=== PATIENT | male | born 1990 | race Caucasian/White ===

== ENCOUNTER 2016-10-09 11:16 | Emergency (ER) | payer OTHER ==
--- NOTE | 2016-10-09 12:36 | EDDOCDS ---
Nurse's Notes [facility] Name: Gerald Conrad Age: 26 yrs Sex: Male : 1990 Arrival Date: 10/09/2016 Time: 11:16 Bed Triage 1 Private MD: Verena Cardenas Diagnosis: Unspecified chronic bronchitis Presentation: 10/09 11:22 Presenting complaint: Patient states: Coughing and "fever". No thermometer at home. ck1 Whole body is "sore". Adult Sepsis Screening: The patient does not have new or worsening altered mentation. Patient's respiratory rate is less than 22. Systolic blood pressure is greater than 100. Patient has a qSOFA score of 0- Negative Sepsis Screen. Suicide/Homicide risk assessment- the patient denies having any suicidal and/or homicidal ideations and does not present with any other emotional, behavioral or mental health complaints. Status: Patient is not a real estate services coordinator or dependent. Transition of care: patient was not received from another setting of care. 11:22 Acuity: VONNIE Level 5 ck1 11:22 Method Of Arrival: Walkin/Carried/Asstd ck1 Triage Assessment: 11:24 General: Appears in no apparent distress, comfortable, unkempt, Behavior is appropriate ck1 for age, cooperative. Pain: Location: generalized Pain currently is 7 out of 10 on a pain scale. HIV screening NA for this visit Offered previously. Neurological: Level of Consciousness is awake, alert, obeys commands, Oriented to person, place, time. Respiratory: Respiratory effort is unlabored, Respiratory pattern is regular, symmetrical, Reports cough that is. GI: No deficits noted. Derm: Skin is intact, Skin is pink, warm & dry. Musculoskeletal: Circulation, motion, and sensation intact Range of motion intact in all extremities. Historical: - Allergies: No known drug Allergies; - Home Meds: 1. Cymbalta 60 mg Oral cpDR once daily 2. Nexium 40 mg Oral cpDR 1 cap once daily - PMHx: Depression; GERD; - PSHx: none; - Social history: Smoking status: Patient uses tobacco products, heavy tobacco smoker. No barriers to communication noted, The patient speaks fluent Estonian, Speaks appropriately for age. - Family history: Not pertinent. - : The pt / caregiver states he / she is not on anticoagulants. Home medication list is obtained from the patient. - Exposure Risk Screening:: None identified. Screenin:33 Screening information is obtained from the patient. Fall risk: No risks identified. cj Assistance ADL's: requires no assistance with activities of daily living. Abuse/DV Screen: The patient / caregiver reports he/she is: not in a situation that causes fear, pain or injury. Nutritional screening: No deficits noted. Advance Directives: There is no active DNR order. home support is adequate. Assessment: 12:33 General: Appears in no apparent distress, comfortable, Behavior is appropriate for age, cj cooperative, first contact with patient to review discharge instructions with patient, patient denies needs, declines offer of further assistance. Vital Signs: 11:19 BP 142 / 78; Pulse 74; Resp 18; Temp 98.4; Pulse Ox 100% ; Weight 88.45 kg; Height 5 elp ft. 9 in. (175.26 cm); Pain 7/10; 11:19 Body Mass Index 28.80 (88.45 kg, 175.26 cm) [facility] Vitals: 11:19 Log In Time: October 09, 2016 at 11:17. [facility] ED Course: 11:19 Patient visited by Lori Fairbanks PCA. elp 11:19 Verena Cardenas is Private Physician. elp 11:19 Patient moved to Waiting elp 11:21 Patient visited by Lori Fairbanks PCA. elp 11:21 Patient moved to Pre RCE elp 11:24 Triage Initiated ck1 12:00 Patient moved to Triage 1 mlb1 12:15 Patient visited by Julio Rodas RN. mlb1 12:18 [facility] cc[facility] 12:18 Nicho Sweeney MD is Attending Physician. cc10 12:18 Patient visited by Ben Perez PA-C. cc10 12:18 Patient visited by Ben Perez PA-C. cc10 12:27 Verena Cardenas is Referral Physician. cc10 12:33 The patient / caregiver is instructed regarding the plan of care and ED course. cj 12:33 No IV's were initiated during this patient's visit. No procedures done that require [facility] assistance. Order Results: There are currently no results for this order. Outcome: 12:27 Discharge ordered by Provider. cc10 12:33 Discharge Assessment: Patient awake, alert and oriented x 3. No cognitive and/or [facility] functional deficits noted. Patient verbalized understanding of disposition instructions. patient administered narcotics - no. The following High Risk Discharge criteria are identified: None. Discharged to home ambulatory. Condition: good Condition: stable Condition: improved. Discharge instructions given to patient, Instructed on discharge instructions, follow up and referral plans. medication usage, Demonstrated understanding of instructions, medications, Pt was receptive of discharge instructions/ teaching. Prescriptions given X 3. No special radiology studies were completed. Property :Personal belongings accompany Pt. 12:35 Patient left the ED. [facility] Signatures: Julio Rodas RN RN mlb1 Christina Belcher,RN RN ck1 Diana FaustRN RN [facility] Lori Fairbanks, TELEPHONE INSTALLER TELEPHONE INSTALLER janap Ben Perez, PA-C PA-C cc10 MTDD
--- NOTE | 2016-10-09 12:36 | EDDOCDS ---
Physician Documentation [facility] Name: Gerald Conrad Age: 26 yrs Sex: Male : 1990 Arrival Date: 10/09/2016 Time: 11:16 Bed Triage 1 Private MD: Verena Cardenas Disposition: 10/09/16 12:27 Discharged to Home/Self Care. Impression: Unspecified chronic bronchitis. - Condition is Stable. - Discharge Instructions: Chronic Bronchitis, How to Use an Inhaler. - Prescriptions for Prednisone 20 mg Oral Tablet - take 1 tablet by ORAL route once daily for 5 days; 5 tablet. Guaifenesin- DM 10-100 mg/5 mL Oral Liquid - take 10 milliliter by ORAL route every 6 hours As needed; 200 milliliter. Albuterol Sulfate 90 mcg/actuation Inhalation HFA Aerosol Inhaler - inhale 2 puff by INHALATION route every 4 hours As needed; 1 Inhaler. - Medication Reconciliation, Local Pharmacy Hours form. - Follow up: Emergency Department; When: As needed. Follow up: Verena Cardenas; When: Call to arrange an appointment; Reason: Wound/Symptom Recheck, Recheck today's complaints, Worsening of conditions, Continuance of care. - Problem is an ongoing problem. - Symptoms are unchanged. Historical: - Allergies: No known drug Allergies; - Home Meds: 1. Cymbalta 60 mg Oral cpDR once daily 2. Nexium 40 mg Oral cpDR 1 cap once daily - PMHx: Depression; GERD; - PSHx: none; - Social history: Smoking status: Patient uses tobacco products, heavy tobacco smoker. No barriers to communication noted, The patient speaks fluent Slovak, Speaks appropriately for age. - Family history: Not pertinent. - : The pt / caregiver states he / she is not on anticoagulants. Home medication list is obtained from the patient. - Exposure Risk Screening:: None identified. Vital Signs: 10/09 11:19 BP 142 / 78; Pulse 74; Resp 18; Temp 98.4; Pulse Ox 100% ; Weight 88.45 kg / 195 lbs; elp Height 5 ft. 9 in. (175.26 cm); Pain 7/10; 11:19 Body Mass Index 28.80 (88.45 kg, 175.26 cm) elp MDM: 12:33 Financial registration complete. lg Signatures: Bijal Zayas, Reg Reg Christina BelcherRN RN ck1 Diana FaustRN RN cjh Ben Perez PA-C PA-C cc10 MTDD
--- NOTE | 2016-10-11 13:36 | EDDOCDS ---
Physician Documentation [facility] Name: Dale Conrad Age: 26 yrs Sex: Male : 1990 Arrival Date: 10/09/2016 Time: 11:16 Bed Triage 1 Private MD: Verena Cardenas Disposition: 10/09/16 12:27 Discharged to Home/Self Care. Impression: Unspecified chronic bronchitis. - Condition is Stable. - Discharge Instructions: Chronic Bronchitis, How to Use an Inhaler. - Prescriptions for Prednisone 20 mg Oral Tablet - take 1 tablet by ORAL route once daily for 5 days; 5 tablet. Guaifenesin- DM 10-100 mg/5 mL Oral Liquid - take 10 milliliter by ORAL route every 6 hours As needed; 200 milliliter. Albuterol Sulfate 90 mcg/actuation Inhalation HFA Aerosol Inhaler - inhale 2 puff by INHALATION route every 4 hours As needed; 1 Inhaler. - Medication Reconciliation, Local Pharmacy Hours form. - Follow up: Emergency Department; When: As needed. Follow up: Verena Cardenas; When: Call to arrange an appointment; Reason: Wound/Symptom Recheck, Recheck today's complaints, Worsening of conditions, Continuance of care. - Problem is an ongoing problem. - Symptoms are unchanged. Historical: - Allergies: No known drug Allergies; - Home Meds: 1. Cymbalta 60 mg Oral cpDR once daily 2. Nexium 40 mg Oral cpDR 1 cap once daily - PMHx: Depression; GERD; - PSHx: none; - Social history: Smoking status: Patient uses tobacco products, heavy tobacco smoker. No barriers to communication noted, The patient speaks fluent Sami, Speaks appropriately for age. - Family history: Not pertinent. - : The pt / caregiver states he / she is not on anticoagulants. Home medication list is obtained from the patient. - Exposure Risk Screening:: None identified. Vital Signs: 10/09 11:19 BP 142 / 78; Pulse 74; Resp 18; Temp 98.4; Pulse Ox 100% ; Weight 88.45 kg / 195 lbs; elp Height 5 ft. 9 in. (175.26 cm); Pain 7/10; 11:19 Body Mass Index 28.80 (88.45 kg, 175.26 cm) elp MDM: 12:33 Financial registration complete. lg 13:59 T-Sheet-- Draft Copy was scanned into [employer] and attached to record. gb 15:07 [facility] Payment Agreement was scanned into [employer] and attached to record. lg Signatures: Mackenzie Vilchis, Reg Reg gb Bijal Zayas, Reg Reg lg Christina Belcher,RN RN ck1 Diana FaustRN RN cj Ben Perez, PALucioC PAInder cc10 The chart was reviewed and I authenticate all verbal orders and agree with the evaluation and treatment provided.Attachments: 13:59 T-Sheet-- Draft Copy gb 15:07 [facility] Payment Agreement lg Chart Complete MTDD
--- NOTE | 2016-10-11 13:36 | EDDOCDS ---
Nurse's Notes [facility] Name: Dale Conrad Age: 26 yrs Sex: Male : 1990 Arrival Date: 10/09/2016 Time: 11:16 Bed Triage 1 Private MD: Verena Cardenas Diagnosis: Unspecified chronic bronchitis Presentation: 10/09 11:22 Presenting complaint: Patient states: Coughing and "fever". No thermometer at home. ck1 Whole body is "sore". Adult Sepsis Screening: The patient does not have new or worsening altered mentation. Patient's respiratory rate is less than 22. Systolic blood pressure is greater than 100. Patient has a qSOFA score of 0- Negative Sepsis Screen. Suicide/Homicide risk assessment- the patient denies having any suicidal and/or homicidal ideations and does not present with any other emotional, behavioral or mental health complaints. Status: Patient is not a service representative or dependent. Transition of care: patient was not received from another setting of care. 11:22 Acuity: VONNIE Level 5 ck1 11:22 Method Of Arrival: Walkin/Carried/Asstd ck1 Triage Assessment: 11:24 General: Appears in no apparent distress, comfortable, unkempt, Behavior is appropriate ck1 for age, cooperative. Pain: Location: generalized Pain currently is 7 out of 10 on a pain scale. HIV screening NA for this visit Offered previously. Neurological: Level of Consciousness is awake, alert, obeys commands, Oriented to person, place, time. Respiratory: Respiratory effort is unlabored, Respiratory pattern is regular, symmetrical, Reports cough that is. GI: No deficits noted. Derm: Skin is intact, Skin is pink, warm & dry. Musculoskeletal: Circulation, motion, and sensation intact Range of motion intact in all extremities. Historical: - Allergies: No known drug Allergies; - Home Meds: 1. Cymbalta 60 mg Oral cpDR once daily 2. Nexium 40 mg Oral cpDR 1 cap once daily - PMHx: Depression; GERD; - PSHx: none; - Social history: Smoking status: Patient uses tobacco products, heavy tobacco smoker. No barriers to communication noted, The patient speaks fluent Slovak, Speaks appropriately for age. - Family history: Not pertinent. - : The pt / caregiver states he / she is not on anticoagulants. Home medication list is obtained from the patient. - Exposure Risk Screening:: None identified. Screenin:33 Screening information is obtained from the patient. Fall risk: No risks identified. cj Assistance ADL's: requires no assistance with activities of daily living. Abuse/DV Screen: The patient / caregiver reports he/she is: not in a situation that causes fear, pain or injury. Nutritional screening: No deficits noted. Advance Directives: There is no active DNR order. home support is adequate. Assessment: 12:33 General: Appears in no apparent distress, comfortable, Behavior is appropriate for age, [facility] cooperative, first contact with patient to review discharge instructions with patient, patient denies needs, declines offer of further assistance. Vital Signs: 11:19 BP 142 / 78; Pulse 74; Resp 18; Temp 98.4; Pulse Ox 100% ; Weight 88.45 kg; Height 5 elp ft. 9 in. (175.26 cm); Pain 7/10; 11:19 Body Mass Index 28.80 (88.45 kg, 175.26 cm) [facility] Vitals: 11:19 Log In Time: October 09, 2016 at 11:17. [facility] ED Course: 11:19 Patient visited by Lori Fairbanks PCA. elp 11:19 Verena Cardenas is Private Physician. elp 11:19 Patient moved to Waiting elp 11:21 Patient visited by Lori Fairbanks PCA. elp 11:21 Patient moved to Pre RCE elp 11:24 Triage Initiated ck1 12:00 Patient moved to Triage 1 mlb1 12:15 Patient visited by Julio Rodas RN. mlb1 12:18 Ben [facility] cc[facility] 12:18 Nicho Sweeney MD is Attending Physician. cc10 12:18 Patient visited by Ben Perez PA-C. cc10 12:18 Patient visited by Ben Perez PA-C. cc10 12:27 Verena Cardenas is Referral Physician. cc10 12:33 The patient / caregiver is instructed regarding the plan of care and ED course. cjh 12:33 No IV's were initiated during this patient's visit. No procedures done that require [facility] assistance. 13:59 T-Sheet-- Draft Copy was scanned into [employer] and attached to record. gb 15:07 [facility] Payment Agreement was scanned into [employer] and attached to record. lg 10/10 07:16 Patient name changed from Allmonroehael\\S\\C\\S\\[place]\\S\\ to Alljeanethmicmaddie\\S\\C\\S\\[place]. EDMS Order Results: There are currently no results for this order. Outcome: 10/09 12:27 Discharge ordered by Provider. cc10 12:33 Discharge Assessment: Patient awake, alert and oriented x 3. No cognitive and/or [facility] functional deficits noted. Patient verbalized understanding of disposition instructions. patient administered narcotics - no. The following High Risk Discharge criteria are identified: None. Discharged to home ambulatory. Condition: good Condition: stable Condition: improved. Discharge instructions given to patient, Instructed on discharge instructions, follow up and referral plans. medication usage, Demonstrated understanding of instructions, medications, Pt was receptive of discharge instructions/ teaching. Prescriptions given X 3. No special radiology studies were completed. Property :Personal belongings accompany Pt. 12:35 Patient left the ED. [facility] Signatures: Dispatcher [employer]-LEARN EDKS Mackenzie Vilchis, Reg Reg gb Bijal Zayas, Reg Reg lg Julio Rodas RN RN mlb1 Christina BelcherRN RN ck1 Diana Faust RN RN [facility] Lori Fairbanks, MUFFLER HAND MUFFLER HAND elp Ben Perez, PA-C PA-C cc10 Chart Complete MTDD
--- NOTE | 2016-10-11 13:36 | EDDOCDS ---
Physician Documentation [facility] Name: Dale Conrad Age: 26 yrs Sex: Male : 1990 Arrival Date: 10/09/2016 Time: 11:16 Bed Triage 1 Private MD: Verena Cardenas Disposition: 10/09/16 12:27 Discharged to Home/Self Care. Impression: Unspecified chronic bronchitis. - Condition is Stable. - Discharge Instructions: Chronic Bronchitis, How to Use an Inhaler. - Prescriptions for Prednisone 20 mg Oral Tablet - take 1 tablet by ORAL route once daily for 5 days; 5 tablet. Guaifenesin- DM 10-100 mg/5 mL Oral Liquid - take 10 milliliter by ORAL route every 6 hours As needed; 200 milliliter. Albuterol Sulfate 90 mcg/actuation Inhalation HFA Aerosol Inhaler - inhale 2 puff by INHALATION route every 4 hours As needed; 1 Inhaler. - Medication Reconciliation, Local Pharmacy Hours form. - Follow up: Emergency Department; When: As needed. Follow up: Verena Cardenas; When: Call to arrange an appointment; Reason: Wound/Symptom Recheck, Recheck today's complaints, Worsening of conditions, Continuance of care. - Problem is an ongoing problem. - Symptoms are unchanged. Historical: - Allergies: No known drug Allergies; - Home Meds: 1. Cymbalta 60 mg Oral cpDR once daily 2. Nexium 40 mg Oral cpDR 1 cap once daily - PMHx: Depression; GERD; - PSHx: none; - Social history: Smoking status: Patient uses tobacco products, heavy tobacco smoker. No barriers to communication noted, The patient speaks fluent Armenian, Speaks appropriately for age. - Family history: Not pertinent. - : The pt / caregiver states he / she is not on anticoagulants. Home medication list is obtained from the patient. - Exposure Risk Screening:: None identified. Vital Signs: 10/09 11:19 BP 142 / 78; Pulse 74; Resp 18; Temp 98.4; Pulse Ox 100% ; Weight 88.45 kg / 195 lbs; elp Height 5 ft. 9 in. (175.26 cm); Pain 7/10; 11:19 Body Mass Index 28.80 (88.45 kg, 175.26 cm) elp MDM: 12:33 Financial registration complete. lg 13:59 T-Sheet-- Draft Copy was scanned into [employer] and attached to record. gb 15:07 [facility] Payment Agreement was scanned into [employer] and attached to record. lg Signatures: Mackenzie Vilchis, Reg Reg gb Bijal Zayas, Reg Reg lg Christina Belcher,RN RN ck1 Diana FaustRN RN cj Ben Perez, PALucioC PAInder cc10 The chart was reviewed and I authenticate all verbal orders and agree with the evaluation and treatment provided.Attachments: 13:59 T-Sheet-- Draft Copy gb 15:07 [facility] Payment Agreement lg Chart Complete MTDD
== END 2016-10-09 12:35 | disposition home or self-care (01) ==
LOC: M ED 11:16
DX: J42 Unspecified chronic bronchitis (principal); K21.9 Gastro-esophageal reflux disease without esophagitis; F32.9 Major depressive disorder, single episode, unspecified; F17.210 Nicotine dependence, cigarettes, uncomplicated

== ENCOUNTER 2016-11-16 18:17 | Emergency (ER) | payer OTHER ==
--- NOTE | 2016-11-16 19:24 | REP ---
Clinical: Cough. Technique: PA and lateral. Comparison: 09/04/2016. Findings: Mediastinum and cardiac silhouette normal. No focal consolidation, effusion, or pneumothorax. Skeletal structures intact. Impression: No acute cardiopulmonary process or focal consolidation. Signed by Steven Gary MD 11/16/2016 07:15 P
[2016-11-16] MEDS ORDERED: BENZONATATE 100 MG CAP As Ordered ONE (19:56)
[2016-11-16] MEDS ORDERED: AZITHROMYCIN 250 MG TAB As Ordered ONE (19:56)
--- NOTE | 2016-11-16 20:20 | EDDOCDS ---
Nurse's Notes [facility] Name: Ehsan Conrad Age: 26 yrs Sex: Male : 1990 Arrival Date: 11/16/2016 Time: 18:17 Bed PR Private MD: Verena Cardenas FNP-C Diagnosis: Acute bronchitis Presentation: 11/16 18:19 Presenting complaint: Patient states: Persistent cough over the past month, body aches mlb1 and chills today. Adult Sepsis Screening: The patient does not have new or worsening altered mentation. Patient's respiratory rate is less than 22. Systolic blood pressure is greater than 100. Patient has a qSOFA score of 0- Negative Sepsis Screen. Suicide/Homicide risk assessment- the patient denies having any suicidal and/or homicidal ideations and does not present with any other emotional, behavioral or mental health complaints. Status: Patient is not a insurance customer service specialist or dependent. Transition of care: patient was not received from another setting of care. 18:19 Acuity: VONNIE Level 4 mlb1 18:19 Method Of Arrival: Walkin/Carried/Asstd mlb1 Triage Assessment: 18:21 General: Appears in no apparent distress, unkempt, Behavior is appropriate for age, mlb1 cooperative. Pain: Location: "all over" Pain currently is 8 out of 10 on a pain scale. HIV screening NA for this visit Offered previously. Historical: - Allergies: no known allergies; - Home Meds: 1. Cymbalta 60 mg Oral cpDR once daily - PMHx: Depression; GERD; - PSHx: none; - Social history: Smoking status: Patient uses tobacco products, heavy tobacco smoker. Ethnicity: No barriers to communication noted, The patient speaks fluent Beninese, Speaks appropriately for age. - Family history: Not pertinent. - : The pt / caregiver states he / she is not on anticoagulants. Home medication list is obtained from the patient. - Exposure Risk Screening:: None identified. None identified. Screenin:09 Screening information is obtained from the patient. Fall risk: No risks identified. ms18 Assistance ADL's: requires no assistance with activities of daily living. Abuse/DV Screen: The patient / caregiver reports he/she is: not in a situation that causes fear, pain or injury. Nutritional screening: No deficits noted. Advance Directives: There is no living will. home support is adequate. Assessment: 19:09 General: Appears in no apparent distress, comfortable, Behavior is appropriate for age, ms18 cooperative. Neurological: No deficits noted. Respiratory: Airway is patent Respiratory effort is even, unlabored. Derm: Skin is pink, warm & dry. 20:16 General: Appears in no apparent distress, comfortable, Behavior is appropriate for age, mcp cooperative. Pain: Denies pain. Neurological: Level of Consciousness is awake, alert, obeys commands, Oriented to person, place, time. Respiratory: Airway is patent Respiratory effort is even, unlabored, Respiratory pattern is regular, symmetrical, Reports cough that is. GI: No deficits noted. Derm: Skin is pink, warm & dry. Vital Signs: 18:19 BP 134 / 77; Pulse 105; Resp 18; Temp 98; Pulse Ox 100% ; Weight 95.25 kg; Height 5 ft. cmb 9 in. (175.26 cm); Pain 8/10; 20:16 BP 128 / 75; Pulse 89; Resp 18; Temp 98; Pulse Ox 99% ; mcp 18:19 Body Mass Index 31.01 (95.25 kg, 175.26 cm) cmb Vitals: 18:19 Log In Time: November 16, 2016 at 18:17. cmb 19:13 Strep Screen is obtained and tested: Negative, a GATSNEG culture is ordered in [facility] ms18 and sent. ED Course: 18:18 Patient visited by Wilma Hart. cmb 18:18 Verena Cardenas is Private Physician. cmb 18:18 Patient moved to Waiting cmb 18:19 Patient visited by Julio Rodas, VAZQUEZ. mlb1 18:20 Patient moved to Pre RCE cmb 18:20 Triage Initiated mlb1 18:22 Patient visited by Julio Rodas RN. mlb1 18:37 Patient moved to Triage 2 mlb1 18:56 [facility]C [facility] ck7 18:56 Terrence Galvin DO is Attending Physician. ck7 18:56 Patient visited by Harvey Angel RPA-C. ck7 19:07 Patient moved to TR2 sew 19:09 The patient / caregiver is instructed regarding the plan of care and ED course. Patient ms18 has correct armband on for positive identification. Property :Personal belongings accompany Pt. 19:09 -Influenza A&B Rapid Antigen - Nose Sent. ms18 19:12 [facility] Payment Agreement was scanned into [employer] and attached to record. ks16 19:25 Chest, 2 View (pa\\E\\lat) Returned. EDMS 19:43 Patient visited by Harvey Angel RPA-C. ck7 19:49 Verena Cardenas is Referral Physician. ck7 19:50 Patient moved to PR1 ms18 19:58 Patient name changed from Dale\\S\\C\\S\\[place]\\S\\ to Ehsan\\S\\C\\S\\[place]. EDMS 20:15 Patient visited by Autumn Honeycutt RN. [facility] 20:16 No IV's were initiated during this patient's visit. No procedures done that require mcp assistance. Administered Medications: 20:04 Drug: Tessalon 200 mg Route: PO; ms18 20:16 Follow up: Response: Pt left department before re-evaluation is appropriate [facility] 20:04 Drug: azithromycin 500 mg [azithromycin 250 mg tablet (2 tabs)] Route: PO; ms18 20:16 Follow up: Response: Pt left department before re-evaluation is appropriate mcp Order Results: Lab Order: -Influenza A&B Rapid Antigen - Nose; SPEC'M 11/16/16 19:03 Test: INFLUENZA A RAPID SCR by ICA; Value: INFLUENZA A RESULTS NEGATIVE; Status: F Test: INFLUENZA A RAPID SCR by ICA; Value: Comments:; Status: F Test: INFLUENZA B RAPID SCR by ICA; Value: INFLUENZA B RESULTS NEGATIVE; Status: F Test Note: ; The Influenza test is a direct rapid immunoassay for the qualitative detection of Influenza viral antigen. Cell culture (Viral Culture) testing should be considered to confirm NEGATIVE results and to assist in detecting other viruses that can provide similar clinical symptoms. Please contact the lab within 24 hours ([phone]) if confirmatory testing is desired. Radiology Order: Chest, 2 View (pa\\E\\lat) Test: Chest, 2 View (pa\\E\\lat) REASON FOR EXAMINATION: Cough; Clinical: Cough.; ; Technique: PA and lateral.; ; Comparison: 09/04/2016.; ; Findings:; Mediastinum and cardiac silhouette normal. No focal consolidation, effusion, or; pneumothorax. Skeletal structures intact.; ; Impression:; No acute cardiopulmonary process or focal consolidation.; ; ; Signed by; Steven Gary MD 11/16/2016 07:15 P; Outcome: 19:49 Discharge ordered by Provider. ck7 20:16 Discharge Assessment: Patient awake, alert and oriented x 3. No cognitive and/or mcp functional deficits noted. Patient verbalized understanding of disposition instructions. patient administered narcotics - no. The following High Risk Discharge criteria are identified: None. Discharged to home ambulatory. Condition: good Condition: stable Condition: improved. Discharge instructions given to patient, Instructed on discharge instructions, follow up and referral plans. medication usage, Demonstrated understanding of instructions, medications, Pt was receptive of discharge instructions/ teaching. Prescriptions given X 2. No special radiology studies were completed. 20:20 Patient left the ED. [facility] Signatures: Dispatcher [employer] EDMS Autumn Honeycutt RN Julio Patterson mcp RN RN mlWilma Reddy Christopher, RPA-C RPA-Cck7 Clara Brown MalloryRN RN ms18 Iraida Fernandez, Reg Reg ks16 JENNA
--- NOTE | 2016-11-16 20:20 | EDDOCDS ---
Physician Documentation [facility] Name: Ehsan Conrad Age: 26 yrs Sex: Male : 1990 Arrival Date: 11/16/2016 Time: 18:17 Bed Private MD: Verena Cardenas FNP-C Disposition: 11/16/16 19:49 Discharged to Home/Self Care. Impression: Acute bronchitis. - Condition is Stable. - Discharge Instructions: Acute Bronchitis. - Prescriptions for Zithromax 250 mg Oral Tablet - take 1 tablet by ORAL route once daily start tomorrow; 4 tablet. benzonatate 200 mg Oral Capsule - take 1 capsule by ORAL route 3 times per day As needed; 30 capsule. - Medication Reconciliation, Local Pharmacy Hours form. - Follow up: Verena Cardenas; When: 2 - 3 days; Reason: Recheck today's complaints, Continuance of care. - Problem is new. - Symptoms have improved. - Notes: USE MEDICATION INSTRUCTED, FOLLOW UP WITH YOUR DOCTOR IN 2-3 DAYS, RETURN TO THE ER IF THE SYMPTOMS WORSEN OR BECOME CONCERNING Historical: - Allergies: no known allergies; - Home Meds: 1. Cymbalta 60 mg Oral cpDR once daily - PMHx: Depression; GERD; - PSHx: none; - Social history: Smoking status: Patient uses tobacco products, heavy tobacco smoker. Ethnicity: No barriers to communication noted, The patient speaks fluent Romansh, Speaks appropriately for age. - Family history: Not pertinent. - : The pt / caregiver states he / she is not on anticoagulants. Home medication list is obtained from the patient. - Exposure Risk Screening:: None identified. None identified. Vital Signs: 11/16 18:19 BP 134 / 77; Pulse 105; Resp 18; Temp 98; Pulse Ox 100% ; Weight 95.25 kg / 209.99 lbs; cmb Height 5 ft. 9 in. (175.26 cm); Pain 8/10; 20:16 BP 128 / 75; Pulse 89; Resp 18; Temp 98; Pulse Ox 99% ; mcp 18:19 Body Mass Index 31.01 (95.25 kg, 175.26 cm) cmb MDM: 19:01 Strep Screen, Nursing ordered. ck7 19:01 Obtain sample by nasopharyngeal swab ordered. ck7 19:02 Chest, 2 View (pa\E\lat) Ordered. EDMS 19:02 -Influenza A&B Rapid Antigen - Nose Ordered. EDMS 19:11 Financial registration complete. ks16 19:12 [facility] Payment Agreement was scanned into [employer] and attached to record. ks16 19:13 GATS (NEGATIVE STREP SCREEN) Ordered. EDMS 19:47 -Influenza A&B Rapid Antigen - Nose Reviewed. ck7 19:47 Chest, 2 View (pa\E\lat) Reviewed. ck7 19:50 Tessalon 200 mg PO once ordered. ck7 19:50 azithromycin 500 mg PO once ordered. ck7 Administered Medications: 20:04 Drug: Tessalon 200 mg Route: PO; ms18 20:16 Follow up: Response: Pt left department before re-evaluation is appropriate [facility] 20:04 Drug: azithromycin 500 mg [azithromycin 250 mg tablet (2 tabs)] Route: PO; ms18 20:16 Follow up: Response: Pt left department before re-evaluation is appropriate [facility] Signatures: Dispatcher [employer] EDCA Autumn Honeycutt RN RN Julio Hernandez RN RN mlb1 Harvey Angel, RPA-C RPA-Cck7 Carina Hanson RN RN ms18 Iraida Fernandez, Reg Reg ks16 The chart was reviewed and I authenticate all verbal orders and agree with the evaluation and treatment provided.Attachments: 19:12 [facility] Payment Agreement ks16 MTDD
--- NOTE | 2016-11-18 21:20 | EDDOCDS ---
Physician Documentation [facility] Name: Ehsan Conrad Age: 26 yrs Sex: Male : 1990 Arrival Date: 11/16/2016 Time: 18:17 Bed Private MD: Verena Cardenas FNP-C Disposition: 11/16/16 19:49 Discharged to Home/Self Care. Impression: Acute bronchitis. - Condition is Stable. - Discharge Instructions: Acute Bronchitis. - Prescriptions for Zithromax 250 mg Oral Tablet - take 1 tablet by ORAL route once daily start tomorrow; 4 tablet. benzonatate 200 mg Oral Capsule - take 1 capsule by ORAL route 3 times per day As needed; 30 capsule. - Medication Reconciliation, Local Pharmacy Hours form. - Follow up: Verena Cardenas; When: 2 - 3 days; Reason: Recheck today's complaints, Continuance of care. - Problem is new. - Symptoms have improved. - Notes: USE MEDICATION INSTRUCTED, FOLLOW UP WITH YOUR DOCTOR IN 2-3 DAYS, RETURN TO THE ER IF THE SYMPTOMS WORSEN OR BECOME CONCERNING Historical: - Allergies: no known allergies; - Home Meds: 1. Cymbalta 60 mg Oral cpDR once daily - PMHx: Depression; GERD; - PSHx: none; - Social history: Smoking status: Patient uses tobacco products, heavy tobacco smoker. Ethnicity: No barriers to communication noted, The patient speaks fluent Kiswahili, Speaks appropriately for age. - Family history: Not pertinent. - : The pt / caregiver states he / she is not on anticoagulants. Home medication list is obtained from the patient. - Exposure Risk Screening:: None identified. None identified. Vital Signs: 11/16 18:19 BP 134 / 77; Pulse 105; Resp 18; Temp 98; Pulse Ox 100% ; Weight 95.25 kg / 209.99 lbs; cmb Height 5 ft. 9 in. (175.26 cm); Pain 8/10; 20:16 BP 128 / 75; Pulse 89; Resp 18; Temp 98; Pulse Ox 99% ; mcp 18:19 Body Mass Index 31.01 (95.25 kg, 175.26 cm) cmb MDM: 19:01 Strep Screen, Nursing ordered. ck7 19:01 Obtain sample by nasopharyngeal swab ordered. ck7 19:02 Chest, 2 View (pa\E\lat) Ordered. EDMS 19:02 -Influenza A&B Rapid Antigen - Nose Ordered. EDMS 19:11 Financial registration complete. ks16 19:12 [facility] Payment Agreement was scanned into [employer] and attached to record. ks16 19:13 GATS (NEGATIVE STREP SCREEN) Ordered. EDMS 19:47 -Influenza A&B Rapid Antigen - Nose Reviewed. ck7 19:47 Chest, 2 View (pa\E\lat) Reviewed. ck7 19:50 Tessalon 200 mg PO once ordered. ck7 19:50 azithromycin 500 mg PO once ordered. ck7 11/17 08:45 T-Sheet-- Draft Copy was scanned into [employer] and attached to record. [facility] Administered Medications: 11/16 20:04 Drug: Tessalon 200 mg Route: PO; ms18 20:16 Follow up: Response: Pt left department before re-evaluation is appropriate [facility] 20:04 Drug: azithromycin 500 mg [azithromycin 250 mg tablet (2 tabs)] Route: PO; ms18 20:16 Follow up: Response: Pt left department before re-evaluation is appropriate [facility] Signatures: Dispatcher [employer] EDMS Autumn Honeycutt RN VAZQUEZ [facility] Julio Rodas RN RN mlb1 Harvey Angel, RPA-C RPA-Cck7 Carina Hanson RN RN ms18 Iraida Fernandez, Reg Reg ks16 Clara Vann [facility] The chart was reviewed and I authenticate all verbal orders and agree with the evaluation and treatment provided.Attachments: 19:12 [facility] Payment Agreement 16 11/17 08:45 T-Sheet-- Draft Copy [facility] Chart Complete MTDD
--- NOTE | 2016-11-18 21:20 | EDDOCDS ---
Nurse's Notes [facility] Name: Ehsan Conrad Age: 26 yrs Sex: Male : 1990 Arrival Date: 11/16/2016 Time: 18:17 Bed PR Private MD: Verena Cardenas FNP-C Diagnosis: Acute bronchitis Presentation: 11/16 18:19 Presenting complaint: Patient states: Persistent cough over the past month, body aches mlb1 and chills today. Adult Sepsis Screening: The patient does not have new or worsening altered mentation. Patient's respiratory rate is less than 22. Systolic blood pressure is greater than 100. Patient has a qSOFA score of 0- Negative Sepsis Screen. Suicide/Homicide risk assessment- the patient denies having any suicidal and/or homicidal ideations and does not present with any other emotional, behavioral or mental health complaints. Status: Patient is not a auto self service station attendant or dependent. Transition of care: patient was not received from another setting of care. 18:19 Acuity: VONNIE Level 4 mlb1 18:19 Method Of Arrival: Walkin/Carried/Asstd mlb1 Triage Assessment: 18:21 General: Appears in no apparent distress, unkempt, Behavior is appropriate for age, mlb1 cooperative. Pain: Location: "all over" Pain currently is 8 out of 10 on a pain scale. HIV screening NA for this visit Offered previously. Historical: - Allergies: no known allergies; - Home Meds: 1. Cymbalta 60 mg Oral cpDR once daily - PMHx: Depression; GERD; - PSHx: none; - Social history: Smoking status: Patient uses tobacco products, heavy tobacco smoker. Ethnicity: No barriers to communication noted, The patient speaks fluent Bahamian, Speaks appropriately for age. - Family history: Not pertinent. - : The pt / caregiver states he / she is not on anticoagulants. Home medication list is obtained from the patient. - Exposure Risk Screening:: None identified. None identified. Screenin:09 Screening information is obtained from the patient. Fall risk: No risks identified. ms18 Assistance ADL's: requires no assistance with activities of daily living. Abuse/DV Screen: The patient / caregiver reports he/she is: not in a situation that causes fear, pain or injury. Nutritional screening: No deficits noted. Advance Directives: There is no living will. home support is adequate. Assessment: 19:09 General: Appears in no apparent distress, comfortable, Behavior is appropriate for age, ms18 cooperative. Neurological: No deficits noted. Respiratory: Airway is patent Respiratory effort is even, unlabored. Derm: Skin is pink, warm & dry. 20:16 General: Appears in no apparent distress, comfortable, Behavior is appropriate for age, mcp cooperative. Pain: Denies pain. Neurological: Level of Consciousness is awake, alert, obeys commands, Oriented to person, place, time. Respiratory: Airway is patent Respiratory effort is even, unlabored, Respiratory pattern is regular, symmetrical, Reports cough that is. GI: No deficits noted. Derm: Skin is pink, warm & dry. Vital Signs: 18:19 BP 134 / 77; Pulse 105; Resp 18; Temp 98; Pulse Ox 100% ; Weight 95.25 kg; Height 5 ft. cmb 9 in. (175.26 cm); Pain 8/10; 20:16 BP 128 / 75; Pulse 89; Resp 18; Temp 98; Pulse Ox 99% ; mcp 18:19 Body Mass Index 31.01 (95.25 kg, 175.26 cm) cmb Vitals: 18:19 Log In Time: November 16, 2016 at 18:17. cmb 19:13 Strep Screen is obtained and tested: Negative, a GATSNEG culture is ordered in [facility] ms18 and sent. ED Course: 18:18 Patient visited by Wilma Hart. cmb 18:18 Verena Cardenas is Private Physician. cmb 18:18 Patient moved to Waiting cmb 18:19 Patient visited by Julio Rodas, VAZQUEZ. mlb1 18:20 Patient moved to Pre RCE cmb 18:20 Triage Initiated mlb1 18:22 Patient visited by Julio Rodas RN. mlb1 18:37 Patient moved to Triage 2 mlb1 18:56 Harvey Angel RPA-C [facility]. ck7 18:56 Terrence Galvin DO is Attending Physician. ck7 18:56 Patient visited by Harvey Angel RPA-C. ck7 19:07 Patient moved to TR2 sew 19:09 The patient / caregiver is instructed regarding the plan of care and ED course. Patient ms18 has correct armband on for positive identification. Property :Personal belongings accompany Pt. 19:09 -Influenza A&B Rapid Antigen - Nose Sent. ms18 19:12 [facility] Payment Agreement was scanned into [employer] and attached to record. ks16 19:25 Chest, 2 View (pa\\E\\lat) Returned. EDMS 19:43 Patient visited by Harvey Angel RPA-C. ck7 19:49 Verena Cardenas is Referral Physician. ck7 19:50 Patient moved to PR ms18 19:58 Patient name changed from Dale\\S\\C\\S\\[place]\\S\\ to Ehsan\\S\\C\\S\\[place]. EDMS 20:15 Patient visited by Autumn Honeycutt RN. [facility] 20:16 No IV's were initiated during this patient's visit. No procedures done that require mcp assistance. 11/17 08:45 T-Sheet-- Draft Copy was scanned into [employer] and attached to record. se Administered Medications: 11/16 20:04 Drug: Tessalon 200 mg Route: PO; ms18 20:16 Follow up: Response: Pt left department before re-evaluation is appropriate [facility] 20:04 Drug: azithromycin 500 mg [azithromycin 250 mg tablet (2 tabs)] Route: PO; ms18 20:16 Follow up: Response: Pt left department before re-evaluation is appropriate [facility] Order Results: Lab Order: -Influenza A&B Rapid Antigen - Nose; SPEC'M 11/16/16 19:03 Test: INFLUENZA A RAPID SCR by ICA; Value: INFLUENZA A RESULTS NEGATIVE; Status: F Test: INFLUENZA A RAPID SCR by ICA; Value: Comments:; Status: F Test: INFLUENZA B RAPID SCR by ICA; Value: INFLUENZA B RESULTS NEGATIVE; Status: F Test Note: ; The Influenza test is a direct rapid immunoassay for the qualitative detection of Influenza viral antigen. Cell culture (Viral Culture) testing should be considered to confirm NEGATIVE results and to assist in detecting other viruses that can provide similar clinical symptoms. Please contact the lab within 24 hours ([phone]) if confirmatory testing is desired. Lab Order: GATS (NEGATIVE STREP SCREEN); SPEC'M 11/16/16 19:08 Test: GATS CULTURE (NEG STREP SCR); Value: GATS RESULT NEGATIVE FOR STREP PYOGENES (GROUP A); Status: F Test: GATS CULTURE (NEG STREP SCR); Value: <EXTERNAL COMMENT eCWMed> FULL REPORT IN LAB NOTES (eCW and Medent).; Status: F Radiology Order: Chest, 2 View (pa\\E\\lat) Test: Chest, 2 View (pa\\E\\lat) REASON FOR EXAMINATION: Cough; Clinical: Cough.; ; Technique: PA and lateral.; ; Comparison: 09/04/2016.; ; Findings:; Mediastinum and cardiac silhouette normal. No focal consolidation, effusion, or; pneumothorax. Skeletal structures intact.; ; Impression:; No acute cardiopulmonary process or focal consolidation.; ; ; Signed by; Steven Gary MD 11/16/2016 07:15 P; Outcome: 19:49 Discharge ordered by Provider. ck7 20:16 Discharge Assessment: Patient awake, alert and oriented x 3. No cognitive and/or mcp functional deficits noted. Patient verbalized understanding of disposition instructions. patient administered narcotics - no. The following High Risk Discharge criteria are identified: None. Discharged to home ambulatory. Condition: good Condition: stable Condition: improved. Discharge instructions given to patient, Instructed on discharge instructions, follow up and referral plans. medication usage, Demonstrated understanding of instructions, medications, Pt was receptive of discharge instructions/ teaching. Prescriptions given X 2. No special radiology studies were completed. 20:20 Patient left the ED. [facility] Signatures: Dispatcher [employer] EDAutumn Cintron RN Julio Patterson mcp RN RN mlWilma Reddy Christopher, RPA-C RPA-Cck7 Clara Brown Mallory, RN RN ms18 Iraida Fernandez, Reg Reg ks16 Clara Vann Chart Complete MTDD
--- NOTE | 2016-11-18 21:20 | EDDOCDS ---
Physician Documentation [facility] Name: Ehsan Conrad Age: 26 yrs Sex: Male : 1990 Arrival Date: 11/16/2016 Time: 18:17 Bed Private MD: Verena Cardenas FNP-C Disposition: 11/16/16 19:49 Discharged to Home/Self Care. Impression: Acute bronchitis. - Condition is Stable. - Discharge Instructions: Acute Bronchitis. - Prescriptions for Zithromax 250 mg Oral Tablet - take 1 tablet by ORAL route once daily start tomorrow; 4 tablet. benzonatate 200 mg Oral Capsule - take 1 capsule by ORAL route 3 times per day As needed; 30 capsule. - Medication Reconciliation, Local Pharmacy Hours form. - Follow up: Verena Cardenas; When: 2 - 3 days; Reason: Recheck today's complaints, Continuance of care. - Problem is new. - Symptoms have improved. - Notes: USE MEDICATION INSTRUCTED, FOLLOW UP WITH YOUR DOCTOR IN 2-3 DAYS, RETURN TO THE ER IF THE SYMPTOMS WORSEN OR BECOME CONCERNING Historical: - Allergies: no known allergies; - Home Meds: 1. Cymbalta 60 mg Oral cpDR once daily - PMHx: Depression; GERD; - PSHx: none; - Social history: Smoking status: Patient uses tobacco products, heavy tobacco smoker. Ethnicity: No barriers to communication noted, The patient speaks fluent Icelandic, Speaks appropriately for age. - Family history: Not pertinent. - : The pt / caregiver states he / she is not on anticoagulants. Home medication list is obtained from the patient. - Exposure Risk Screening:: None identified. None identified. Vital Signs: 11/16 18:19 BP 134 / 77; Pulse 105; Resp 18; Temp 98; Pulse Ox 100% ; Weight 95.25 kg / 209.99 lbs; cmb Height 5 ft. 9 in. (175.26 cm); Pain 8/10; 20:16 BP 128 / 75; Pulse 89; Resp 18; Temp 98; Pulse Ox 99% ; mcp 18:19 Body Mass Index 31.01 (95.25 kg, 175.26 cm) cmb MDM: 19:01 Strep Screen, Nursing ordered. ck7 19:01 Obtain sample by nasopharyngeal swab ordered. ck7 19:02 Chest, 2 View (pa\E\lat) Ordered. EDMS 19:02 -Influenza A&B Rapid Antigen - Nose Ordered. EDMS 19:11 Financial registration complete. [email or web address] 19:12 [facility] Payment Agreement was scanned into [employer] and attached to record. ks16 19:13 GATS (NEGATIVE STREP SCREEN) Ordered. EDMS 19:47 -Influenza A&B Rapid Antigen - Nose Reviewed. ck7 19:47 Chest, 2 View (pa\E\lat) Reviewed. ck7 19:50 Tessalon 200 mg PO once ordered. ck7 19:50 azithromycin 500 mg PO once ordered. ck7 11/17 08:45 T-Sheet-- Draft Copy was scanned into [employer] and attached to record. [facility] Administered Medications: 11/16 20:04 Drug: Tessalon 200 mg Route: PO; ms18 20:16 Follow up: Response: Pt left department before re-evaluation is appropriate [facility] 20:04 Drug: azithromycin 500 mg [azithromycin 250 mg tablet (2 tabs)] Route: PO; ms18 20:16 Follow up: Response: Pt left department before re-evaluation is appropriate [facility] Signatures: Dispatcher [employer] EDMS Autumn Honeycutt RN VAZQUEZ [facility] Julio Rodas RN RN [id number] Harvey Angel, RPA-C [id number] Carina Hanson RN RN [id number] Iraida Fernandez, Reg Reg [id number] Clara Vann [facility] The chart was reviewed and I authenticate all verbal orders and agree with the evaluation and treatment provided.Attachments: 19:12 [facility] Payment Agreement 16 11/17 08:45 T-Sheet-- Draft Copy [facility] Chart Complete MTDD
== END 2016-11-16 20:20 | disposition home or self-care (01) ==
LOC: M ED 18:17
DX: J20.9 Acute bronchitis, unspecified (principal); F32.9 Major depressive disorder, single episode, unspecified; K21.9 Gastro-esophageal reflux disease without esophagitis; Z72.0 Tobacco use; Z79.899 Other long term (current) drug therapy

== ENCOUNTER → 2016-11-29 | Outpatient (CLI) | payer OTHER ==
[2016-11-29 16:51] LABS: ALBUMIN 4.1 GM/DL (3.2-5.2); ALBUMIN/GLOBULIN RATIO 1.24 (1.00-1.93); ALKALINE PHOSPHATASE 105 U/L (45-117); ALT/SGPT 25 U/L (12-78); ANION GAP 6 MEQ/L (8-16); AST/SGOT 20 U/L (15-37); BILIRUBIN,TOTAL 0.5 MG/DL (0.2-1.0); BLOOD UREA NITROGEN 9 MG/DL (7-18); CARBON DIOXIDE LEVEL 29 MEQ/L (21-32); CHLORIDE LEVEL 106 MEQ/L (98-107); CHOLESTEROL LEVEL 204 MG/DL (<200); CREATININE FOR GFR 0.89 MG/DL (0.70-1.30); GLOMERULAR FILTRATION RATE > 60.0 (>60); GLUCOSE, FASTING 82 MG/DL (70-105); POTASSIUM SERUM 5.1 MEQ/L (3.5-5.1); SODIUM LEVEL 141 MEQ/L (136-145); TOTAL PROTEIN 7.4 GM/DL (6.4-8.2); TRIGLYCERIDES LEVEL 80 MG/DL (<150)
== END ==
LOC: M LAB 14:48
PROVIDERS: ATTEND Nurse Practitioner Family
DX: R03.0 Elevated blood-pressure reading, without diagnosis of hypertension (principal)

== ENCOUNTER 2017-03-06 14:34 | Emergency (ER) | payer OTHER ==
[~2017-03-06] VITALS: Ht 175.3 cm; Wt 88.2 kg
[2017-03-06] MEDS ORDERED: CYMB60CA3 PO (14:42)
--- NOTE | 2017-03-06 15:29 | REP ---
Chest two views HISTORY: Rales Comparison: 11/16/2016 The lungs are clear. The heart is normal in size. The pulmonary vasculature is normal in appearance. The bony structure is intact. IMPRESSION: No acute disease. Signed by Sascha Raphael MD 03/06/2017 03:21 P
[2017-03-06 15:42] VITALS: BP 132/70
== END 2017-03-06 16:03 | disposition home or self-care (01) ==
LOC: M ED 14:54
DX: B34.9 Viral infection, unspecified (principal); Z79.899 Other long term (current) drug therapy; F17.210 Nicotine dependence, cigarettes, uncomplicated

== ENCOUNTER 2017-05-04 14:28 | Emergency (ER) | payer OTHER ==
[~2017-05-04] VITALS: Ht 175.3 cm; Wt 85.7 kg
[~2017-05-04 14:28] MED LIST: CYMB60CA3 PO
[2017-05-04 14:29] VITALS: BP 134/72
[2017-05-04] MEDS ORDERED: NAPR500T3 PO (14:37)
[2017-05-04] MEDS ORDERED: BENA25TA10 PO (14:57)
[2017-05-04] MEDS ORDERED: AUGM875T28 PO (14:57)
[2017-05-04] MEDS ORDERED: PRED20TA PO (14:57)
== END 2017-05-04 15:17 | disposition home or self-care (01) ==
LOC: M ED 14:28
DX: L23.9 Allergic contact dermatitis, unspecified cause (principal); L03.113 Cellulitis of right upper limb; Z72.0 Tobacco use

== ENCOUNTER 2017-06-18 22:18 | Emergency (ER) | payer OTHER ==
[~2017-06-18] VITALS: Ht 175.3 cm; Wt 84.1 kg
[~2017-06-18 22:18] MED LIST changes: +AUGM875T28 PO; +BENA25TA10 PO; +NAPR500T3 PO; +PRED20TA PO
[2017-06-18 22:19] VITALS: BP 136/75
== END 2017-06-18 23:02 | disposition home or self-care (01) ==
LOC: M ED 22:18
DX: L98.0 Pyogenic granuloma (principal); F99 Mental disorder, not otherwise specified; Z79.899 Other long term (current) drug therapy; F17.210 Nicotine dependence, cigarettes, uncomplicated

== ENCOUNTER 2018-06-27 20:07 | Emergency (ER) | payer OTHER | END 2018-06-27 22:18 | disposition home or self-care (01) | LOC: M ED 20:07 | DX: B34.9 Viral infection, unspecified (principal); J40 Bronchitis, not specified as acute or chronic; F33.9 Major depressive disorder, recurrent, unspecified; K21.9 Gastro-esophageal reflux disease without esophagitis; Z79.899 Other long term (current) drug therapy; F17.210 Nicotine dependence, cigarettes, uncomplicated | CPT/HCPCS: 71046 ==